=== PATIENT | male | born 1965 | race Caucasian/White ===

== ENCOUNTER 2017-03-17 18:13 | Emergency (ER) | payer BC ==
[~2017-03-17] VITALS: Ht 190.5 cm; Wt 131.5 kg
[2017-03-17] MEDS ORDERED: PLAVIX75 MG PO (18:28)
[2017-03-17] MEDS ORDERED: BAYER CHEWABLE81 MG PO (18:28)
[2017-03-17] MEDS ORDERED: LIPITOR80 MG PO (18:29)
[2017-03-17] MEDS ORDERED: PEPCID20 MG PO (18:29)
[2017-03-17] MEDS ORDERED: CARVEDILOL6.25 MG PO (18:29)
[2017-03-17] MEDS ORDERED: CEPHALEXIN500 MG PO (23:06)
[2017-03-18] MEDS ORDERED: PERCOCET 7.5-31 EACH PO (10:40)
--- NOTE | 2017-03-18 13:23 | EKG ---
[facility] [address] [facility] [place] [address] Signed Sinus tachycardia Left axis deviation Abnormal ECG No previous ECGs available Confirmed by JUVENTINO FERNANDEZ MD ([id number] on 03/18/2017 1:23:37 PM Electronically Signed By: JUVENTINO FERNANDEZ MD 03/18/17 1323 PATIENT NAME: ANGELINA VARGAS Electrocardiogram DATE OF : 67 PHYSICIAN: JUVENTINO FERNANDEZ MD REPORT #: [id number] REPORT IS CONFIDENTIAL AND NOT TO BE RELEASED WITHOUT AUTHORIZATION
== END 2017-03-17 23:27 | disposition home or self-care (01) ==
LOC: EDSEX 18:13 → ED 18:13
DX: L03.115 Cellulitis of right lower limb (principal); Z87.891 Personal history of nicotine dependence; Z88.0 Allergy status to penicillin; Z88.8 Allergy status to other drugs, medicaments and biological substances; Z79.899 Other long term (current) drug therapy; Z79.82 Long term (current) use of aspirin
CPT/HCPCS: 71045; 80053; 81001; 83605; 85025; 87040; 93005; 93010; 96361; 96365; 96375; 96376; 99283; J2270; J2405; J3370; J7030

== ENCOUNTER 2017-03-18 10:05 | Emergency (ER) | payer BC ==
[~2017-03-18] VITALS: Ht 190.5 cm; Wt 131.5 kg
[~2017-03-18 10:05] MED LIST: BAYER CHEWABLE81 MG PO; CARVEDILOL6.25 MG PO; CEPHALEXIN500 MG PO; LIPITOR80 MG PO; PEPCID20 MG PO; PLAVIX75 MG PO
[2017-03-18] MEDS ORDERED: PERCOCET 7.5-31 EACH PO (10:40)
== END 2017-03-18 13:15 | disposition home or self-care (01) ==
LOC: ED 10:05
DX: L03.115 Cellulitis of right lower limb (principal); L02.415 Cutaneous abscess of right lower limb; I25.2 Old myocardial infarction; Z87.891 Personal history of nicotine dependence; Z88.0 Allergy status to penicillin; Z88.8 Allergy status to other drugs, medicaments and biological substances; Z79.899 Other long term (current) drug therapy; Z79.82 Long term (current) use of aspirin; Z79.2 Long term (current) use of antibiotics
CPT/HCPCS: 96365; 99283; J3370; J7040

== ENCOUNTER 2017-03-19 11:17 | Emergency (ER) | payer BC ==
[~2017-03-19] VITALS: Ht 190.5 cm; Wt 131.5 kg
[~2017-03-19 11:17] MED LIST changes: +PERCOCET 7.5-31 EACH PO
== END 2017-03-19 13:00 | disposition home or self-care (01) ==
LOC: ED 11:17
DX: L03.115 Cellulitis of right lower limb (principal); I25.2 Old myocardial infarction; Z88.0 Allergy status to penicillin; Z88.8 Allergy status to other drugs, medicaments and biological substances; Z79.899 Other long term (current) drug therapy; Z79.2 Long term (current) use of antibiotics; Z79.82 Long term (current) use of aspirin
CPT/HCPCS: 99282